=== PATIENT | female | born 1960 | race Two or more races ===

== ENCOUNTER 2019-10-09 13:14 | Emergency (ER) | payer OTHER ==
[~2019-10-09] VITALS: Ht 157.5 cm; Wt 64.9 kg
--- NOTE | 2019-10-09 13:30 | NUR ---
[id number]. lower back pain s/p bending over. given fentanyl 100mcg, zofran 4mg ivp guard captain. to er bed 10, hooked to monitor, changed to hosp gown, provided w warm blanket, awaiting md bustos
--- NOTE | 2019-10-09 13:34 | NUR ---
gustavo garza at [facility]
[2019-10-09] MEDS ORDERED: DEXAMETHASONE SOD PHOSPHATE 4 MG/ML VIAL IM ONE (14:00)
[2019-10-09] MEDS ORDERED: CYCLOBENZAPRINE 10 MG TABLET PO ONE (14:00)
[2019-10-09] MEDS ORDERED: KETOROLAC TROMETHAMINE INJ 60 MG/2 ML VIAL IM ONE (14:00)
[2019-10-09] MEDS ORDERED: KETOROLAC TROMETHAMINE INJ 30 MG/ML VIAL ONE (14:14)
[2019-10-09] MEDS ORDERED: DEXAMETHASONE SOD PHOSPHATE 10 MG/ML VIAL ONE (14:14)
[2019-10-09] MEDS ORDERED: CYCLOBENZAPRINE 10 MG TABLET ONE (14:14)
[2019-10-09] MEDS ORDERED: KETOROLAC TROMETHAMINE INJ 30 MG/ML VIAL IV ONE (14:30)
[2019-10-09] MEDS ORDERED: DEXAMETHASONE SOD PHOSPHATE 10 MG/ML VIAL IV ONE (14:30)
[2019-10-09] MEDS ORDERED: HYDROCODONE/APAP 5/325MG 1 EACH TABLET ONE (15:17)
[2019-10-09] MEDS ORDERED: HYDROCODONE/APAP 5/325MG 1 EACH TABLET PO ONE (15:30)
--- NOTE | 2019-10-09 15:36 | NUR ---
IV removed. Catheter intact and site benign. Pressure and 4x4 applied to site. No bleeding noted.Patient discharged to home in stable condition. Written and verbal after care instructions given. Patient verbalizes understanding of instruction. Assisted via wheelchair going to son's vehicle.
[2019-10-09 15:39] VITALS: BP 139/78
== END 2019-10-09 15:39 | disposition home or self-care (01) ==
LOC: ER 13:15
DX: M54.5 Low back pain (principal); G89.29 Other chronic pain; Z88.0 Allergy status to penicillin
CPT/HCPCS: 96374; 96375; 99283; J1100; J1885

== ENCOUNTER 2025-08-06 09:05 | Emergency (ER) | payer OTHER ==
[~2025-08-06] VITALS: Ht 157.5 cm; Wt 61.7 kg
[2025-08-06 10:14] LABS: PLATELET COUNT (AUTO) 199 K/uL (150-450); RED BLOOD CELL COUNT(AUTO) 4.35 MIL/uL (4.0-5.2); RED CELL DISTRIBUTION WIDTH 13.6 % (11.5-15.0); WHITE BLOOD COUNT (AUTO) 5.5 K/uL (4.3-11.0)
[2025-08-06 10:21] LABS: APPEARANCE,URINE CLEAR (CLEAR); BLOOD, URINE NEGATIVE Ery/uL (NEGATIVE); LEUKOCYTE ESTERASE ,URINE NEGATIVE (NEGATIVE); NITRITE, URINE NEGATIVE (NEGATIVE); UGLUCOSE NEGATIVE (NEGATIVE)
[2025-08-06 10:22] LABS: CALCIUM, SERUM 9.1 mg/dL (8.5-10.1); CREATININE 0.7 mg/dL (0.6-1.3); SODIUM SERUM 136.0 mmol/L (136-145); UREA NITROGEN, BLOOD 13.0 mg/dL (7-18)
[2025-08-06 10:27] LABS: ASPARTATE AMINOTRANSFERASE 18.0 U/L (15-37); TOTAL PROTEIN, SERUM 7.3 g/dL (6.4-8.2)
[2025-08-06 10:36] LABS: INR 1.01 (0.91-1.10)
[2025-08-06 11:02] VITALS: BP 143/76; TEMP 98.1; O2SAT 97
== END 2025-08-06 11:02 | disposition home or self-care (01) ==
LOC: ER 09:14
DX: K57.31 Diverticulosis of large intestine without perforation or abscess with bleeding (principal); I11.9 Hypertensive heart disease without heart failure; G89.29 Other chronic pain; R10.32 Left lower quadrant pain; Z88.0 Allergy status to penicillin
CPT/HCPCS: 36415; 80048-TC; 80076-TC; 83690-TC; 85025-TC; 85730-TC; 86850-TC